=== PATIENT | male | born 1960 | race Caucasian/White ===

== ENCOUNTER → 2018-01-22 | Outpatient (CLI) | payer OTHER | LOC: FIMAGING 11:18 | PROVIDERS: ATTEND Internal Medicine | DX: K92.1 Melena (principal) ==

== ENCOUNTER 2018-06-07 17:59 | Inpatient (IN) | payer OTHER ==
[2018-06-07] MEDS ORDERED: ASPIRIN 81 MG CHEWABLE TAB PO ONE (18:18)
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
[2018-06-07 18:27] LABS: PLATELET COUNT 234 10^3/uL (150-400)
--- NOTE | 2018-06-07 18:27 | CPEKG ---
Test Reason : OPEN Blood Pressure : / mmHG Vent. Rate : 045 BPM Atrial Rate : 045 BPM P-R Int : 153 ms QRS Dur : 108 ms QT Int : 458 ms P-R-T Axes : 039 079 038 degrees QTc Int : 397 ms Sinus bradycardia Probable left atrial enlargement Abnormal T, probable ischemia, anterior leads Borderline ST elevation, lateral leads Confirmed by Loyd Mckinley ([id number]) on 06/07/2018 6:26:46 PM Referred By: Confirmed By:Loyd Mckinley
[2018-06-07] MEDS: NITROGLYCERIN 0.4 MG BTL SL PRN ×3 (18:33→18:52)
[2018-06-07] MEDS ORDERED: NITROGLYCERIN/DEXTROSE 250 ML IV ONE (19:49)
[2018-06-07] MEDS ORDERED: ONDANSETRON 4 MG/2 ML VIAL IVP PRN (20:31)
[2018-06-07] MEDS ORDERED: ACETAMINOPHEN 325 MG TAB PO PRN (20:31)
[2018-06-07] MEDS ORDERED: ONDANSETRON DISINTEGRATING 4 MG TAB PO PRN (20:31)
[2018-06-07] MEDS ORDERED: NITROGLYCERIN 0.4 MG BTL SL PRN (20:34)
[2018-06-07] MEDS ORDERED: NS 1,000 ML IV SCH (20:45)
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
[2018-06-08] MEDS ORDERED: HEPARIN 10,000 UNIT/10 ML MDV (1,000 UNIT/ML) IVP PRN (08:05)
[2018-06-08] MEDS ORDERED: HEPARIN/DEXTROSE 500 ML IV SCH (08:15)
[2018-06-08] MEDS ORDERED: LIDOCAINE 1% 300 MG/30 ML SDV ONE (08:37)
[2018-06-08] MEDS ORDERED: fentaNYL 100 MCG/2 ML INJ ONE (08:38)
[2018-06-08] MEDS ORDERED: IOPAMIDOL (ISOVUE-370) 150 ML BTL IV ONE (08:38)
[2018-06-08] MEDS ORDERED: MIDAZOLAM 2 MG/2 ML VIAL ONE (08:38)
[2018-06-08] MEDS ORDERED: ATROPINE SULFATE 1 MG/10 ML SYR ONE (08:40)
[2018-06-08] MEDS ORDERED: BIVALIRUDIN 250 MG/5 ML VIAL IV ONE (08:40)
[2018-06-08] MEDS ORDERED: NITROGLYCERIN 1,500 MCG/15 ML VIAL MISC ONE (08:40)
[2018-06-08] MEDS ORDERED: EPINEPHrine 1 MG/10 ML SYR IVP ONE (08:40)
[2018-06-08] MEDS ORDERED: IOPAMIDOL (ISOVUE 370) 100 ML BTL IV ONE (09:30)
--- NOTE | 2018-06-08 09:42 | PDPROPOC ---
Sedation Plan of Care Sedation Plan of Care: vital signs stable, mental status noted, patient educated of risks, benefits, alternatives, patient can tolerate sedation Planned drugs: fentanyl, midazolam Mallampati Score: Class 2 Mallampati Reference Image: Patient passed 3-3-2 rule?: Yes
--- NOTE | 2018-06-08 09:43 | PDHPUP ---
History & Physical Update H&P update statement: This history and physical update is based on an assessment of the patient which was completed after admission or registration (within 24 hours), but prior to the surgery/procedure. H&P update: H&P reviewed & patient examined, no change in patient's condition since H&P completed
--- NOTE | 2018-06-08 09:57 | PDDXCAT ---
Diagnostic Cath Note - . Date: 06/08/18 Accordion Tuner: Junior Indication: CCC Class III and IV angina on medical treatment, other (ABNORMAL EKG) - Procedure Access: right groin Procedure: left heart catheterization, coronary angiography, left ventriculogram - Materials Left Heart Cath size: 6F Left Heart Cath materials: standard multipack (JL4, JR4, pigtail) - Findings-Left Heart Catheterization LM: 8 mm in size and bifurcates into an LAD and circumflex system. There is no evidence of flow limiting obstruction dissection thrombus or plaque. LAD: The LAD is 6mm in size and arises in its usual location giving rise to a large diagonal vessel of 4mm in size. There is evidence of dye stresming in the proximal LAD. Downstream and best visualized in the SPANISH crainial projection is a very prominent muscle bridge with a near total occlusion of the vessel during systole in the first 20mm of the bridge and a 50% obstruction of the vessel during systole for the next 20mm or so. The vessel is widely patent during diastole. LCX: 5mm in size with a large obtuse marginal vessel without evidence of obstruction. There is DOMI III flow to the distal vessel. RCA: 5 mm in size with normal and DOMI III flow. This is a dominant vessel. There is no evidence of obstruction dissection or thrombus. EDP: 15mmHg LVEF: 55% Wall motion: There is normal wall motion throughout the left ventricle. There are no segmental wall motion abnormalities. There is no evidence of mitral regurgitation. The visualized portion of the thoracic aorta is generous in size , but without evidence of dissection or markos aneurysm. Complications: NONE Estimated blood loss: other (LESS THAN 10ML) Closure method: Angioseal Assessment: The patient has a right dominant coronary circulation without evidence of plaque or coronary artery disease. There is no evidence of dissection or thrombus. The patient does have relatively large coronary vessels with evidence of dye streaming upstream from a very prominent muscle bridge in the LAD. Plan: The patient has exertional chest discomfort with anterior precordial T wave inversions extending to V3. Acute coronary syndrome is unlikely given angiographic changes unless the dye streaming in the proximal LAD is not related to the muscle bridge. The patient should have urgent CTA of the pulmonary circulation to rule out pulmonary embolus. If that study is negative for a major chest finding such as PE, thoracic aortic aneurysm or dissection the patient would appear to be a candidate for conservative management. I do usually recommend ASA as well as prn NTG for patient's with prominent muscle bridge as they are more likely to experience chest pain syndromes, heart attack and sudden than patients without muscle bridges. Intervention for a muscle bridge is rarely employed. Patient Problems: Problems Problem Status Onset Chest pain Acute
[2018-06-08] MEDS ORDERED: IBUPROFEN 600 MG TAB PO PRN (10:31)
[2018-06-08] MEDS ORDERED: LORazepam 1 MG TAB PO PRN (10:32)
[2018-06-08] MEDS ORDERED: ATROPINE SULFATE 1 MG/10 ML SYR IVP PRN (10:35)
[2018-06-08] MEDS ORDERED: KETOROLAC 30 MG/1 ML SDV IVP ONE (10:42)
--- NOTE | 2018-06-08 11:28 | PDMN ---
Medical Necessity Medical necessity: Pt meets inpt criteria per MD order and MCG M-40, Angina. 57 y/o admitted w/unstable angina, abnormal EKG w/inverted Twaves, requiring angiography, NPO, anticipate>2MN for further eval/management.
[2018-06-08 15:31] VITALS: BP 98/54
--- NOTE | 2018-06-08 18:32 | GDS ---
DISCHARGE DIAGNOSES: 1. 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 2. Otherwise negative cardiac catheterization. 3. Bradycardia due to physical fitness. HISTORY: Oswald is a 57-year-old very physically fit male who presented with chest pain and an abnorm al EKG from his primary care office. 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 He has had some chest pain radiating to his left arm. He presented to physic shyann's office after he developed some chest pain at rest. Upon presentation, he was found to have a s everely abnormal EKG with some anterior T-wave inversions that were dramatic. In the emergency room, his troponin was negative. Cardiology saw him for suspected unstable angina. He underwent cardiac catheterization. 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 It is unclear why this is gilbert ddenly bothering him, but he is counseled regarding decreasing activity. Cardiology recommended conse rvative management including aspirin and as needed nitroglycerin. Intervention for muscle bridge is rarely employed. At the time of discharge, patient is chest pain-free and recovering nicely from his cardiac catheterization. CT angiogram of the chest was negative for pulmonary embolus or dissection . He will follow up closely with Dr. Pacheco of Cardiology. DISCHARGE MEDICATIONS: Please see computerized record for full detailed list. New medications: 1. Aspirin 81 mg p.o. daily. 2. Sublingual nitroglycerin 0.4 mg subcu 5 minutes as needed for chest pain. ADDITIONAL DISCHARGE INSTRUCTIONS: 1. Activity restrictions as outlined by Cardiology. He should reduce his extreme, intense exercise. 2. If pain is unrelieved with nitroglycerin, please seek immediate medical care. 3. Follow up with Dr. Pacheco in 2 weeks. Greater than 30 minutes time was spent arranging this discharge. Patient seen and examined by me on the day of discharge. Please note patient was admitted to inpatient status. However, what was suspe cted to be an acute coronary syndrome and need for intervention ended up not requiring intervention, so therefore was admitted to inpatient status, although improved much more rapidly than anticipated a nd only stayed 1 night. /[id number]/MODL
--- NOTE | 2018-06-11 17:08 | CPEKG ---
Test Reason : OPEN Blood Pressure : / mmHG Vent. Rate : 037 BPM Atrial Rate : 037 BPM P-R Int : 172 ms QRS Dur : 099 ms QT Int : 473 ms P-R-T Axes : 039 073 045 degrees QTc Int : 371 ms Sinus bradycardia Inferior ST elevations, cw acute LA Marked ST abnormality, possible anterior subendocardial injury Confirmed by Perry Mccracken ([id number]) on 06/11/2018 5:07:56 PM Referred By: Confirmed By:Perry Mccracken
== END 2018-06-08 16:20 | disposition home or self-care (01) | DRG 287 ==
LOC: F2N 20:39
PROVIDERS: ADMIT Family Medicine; ATTEND Family Medicine
DX: I20.0 Unstable angina (principal); R00.1 Bradycardia, unspecified
CPT/HCPCS: 84484-PO; 96365; C1760; J0461; J0583; J1644; J1885; J2250; J2270; J3010; Q9967